=== PATIENT | male | born 1975 | race Caucasian/White ===

== ENCOUNTER 2024-08-20 13:51 | Emergency (ER) | payer MEDICAID ==
[~2024-08-20] VITALS: Ht 185.4 cm; Wt 81.0 kg
[~2024-08-20 13:51] MED LIST: GABA-1181 PO; LURA40TA2 PO; VENL-68 PO
[2024-08-20 13:52] VITALS: BP 116/82; PULSE 69; RESP 16; TEMP 98; O2SAT 98
[2024-08-20] MEDS ORDERED: LORA-1000 PO (17:06)
[2024-08-20] MEDS ORDERED: OLAN5TAB52 PO (17:06)
[2024-08-20] MEDS: LORazepam 1 MG TABLET PO ONE (17:22)
[2024-08-20] MEDS: OLANZapine 5 MG TABLET PO ONE (17:22)
== END 2024-08-20 17:26 | disposition home or self-care (01) ==
LOC: EMS 13:51
DX: F20.9 Schizophrenia, unspecified (principal); F43.10 Post-traumatic stress disorder, unspecified; F17.210 Nicotine dependence, cigarettes, uncomplicated
CPT/HCPCS: 99284; Z7502; Z7610